=== PATIENT | male | born 1935 | race Caucasian/White ===

== ENCOUNTER 2017-03-01 10:09 | Emergency (ER) | payer BC, MEDICARE ==
[2017-03-01 09:09] LABS: BASOPHILS 0.2 %; BASOPHILS ABSOLUTE 0.01 10/3/uL (0.0-0.16); EOSINOPHILS 2.6 %; EOSINOPHILS ABSOLUTE 0.16 10/3/uL (0.0-0.53); ER CBC TAT 0 Hrs 13 Mins; HEMATOCRIT 38.9 % (40.0-51.0); HEMOGLOBIN 13.3 g/dL (13.6-17.8); IMMATURE GRANULOCYTES 0.2 %; IMMATURE GRANULOCYTES ABSOLUTE 0.01 10/3/uL (0.0-0.11); INTERNATIONAL NORMAL RATI 1.4 UNITS (-); LYMPHOCYTES 11.3 %; LYMPHOCYTES ABSOLUTE 0.69 10/3/uL (0.67-4.30); MANUAL DIFF NO %; MEAN CORPUS HGB CONC 34.2 g/dL (32.0-36.0); MEAN CORPUSCULAR HEMOGLOB 33.3 pg (26.0-34.0); MEAN CORPUSCULAR VOLUME 97.5 fL (80-100); MEAN PLATELET VOLUME 9.2 fL (9.2-13.0); MONOCYTES ABSOLUTE 0.61 10/3/uL (0.21-1.20); NEUTROPHILS 75.7 %; NEUTROPHILS ABSOLUTE 4.65 10/3/uL (2.02-8.40); PARTIAL THROMBO TIME 38.7 SEC (22.5-37.2); PLATELET COUNT 131 10/3/uL (150-400); PROTIME (NOT ORD) 16.7 SEC (12.0-14.5); RED CELL COUNT 3.99 10/6/uL (4.7-6.1); WHITE BLOOD CELLS 6.1 10/3/uL (4.5-10.5)
[2017-03-01 09:14] LABS: INFLUENZA A SCREEN NEGATIVE (NEGATIVE); INFLUENZA B SCREEN NEGATIVE (NEGATIVE)
[2017-03-01 09:21] LABS: ALBUMIN 3.3 G/DL (3.5-5.0); ALKALINE PHOSPHATASE 87 U/L (45-117); BUN (BLOOD UREA NITROGEN) 22 MG/DL (6-23); CALCIUM, SERUM 8.4 MG/DL (8.5-10.4); CHLORIDE, SERUM 112 MMOL/L (96-112); CO2 (CARBON DIOXIDE) 23 MMOL/L (24-34); CREATININE 1.68 MG/DL (0.70-1.30); GFR AFRICAN AMERICAN 43 ML/MIN (>=60); GFR NON AFRICAN AMERICAN 38 ML/MIN (>=60); GLOBULIN 3.3 G/DL (2.5-4.1); GLUCOSE, SERUM 101 MG/DL (60-99); SGOT(AST) 18 U/L (5-40); SGPT(ALT) 23 U/L (5-65); SODIUM, SERUM 143 MMOL/L (135-148); TOTAL BILIRUBIN 0.6 MG/DL (0-1.2); TOTAL PROTEIN 6.6 G/DL (6.0-8.5); TROPONIN I <0.02 NG/ML (<0.05)
[~2017-03-01 10:09] MED LIST: ACT300 PO; ARICEPT10 MG PO; ARICEPT10 PO; ASAB PO; C5 PO; CIP2 PO; CLINDA150 PO; COUMADIN7.5 MG PO; FERROUS SULF325 M1 PO; HYZAAR 100/25 T1 TAB PO; HYZAAR 50/12.51 TAB PO; LEVAQUIN750 MG PO; LOVENOX80 SC; NAMENDA10 MG PO; PRILO PO; PRILOSEC10 MG PO; PRILOSEC40 MG PO; VITAMIN D1000 UNI1 OR; VITAMIN D31000 UNIT PO; XARELTO15 MG PO
[2017-03-01 10:33] LABS: ASCORBIC ACID (UR NOT ORDER) 40 (NEG); BILIRUBIN, URINE NEGATIVE (NEG); ER URINALYSIS TAT 0 Hrs 12 Mins; KETONE, URINE NEGATIVE (NEG); LEUKOCYTE ESTERASE(NOT OR NEG (NEG); NITRITE (URINE) NEG (NEG); WBC (NOT ORDERED) (RFLEX) 1 (0-5)
== END 2017-03-01 11:38 | disposition home or self-care (01) ==
LOC: ER 10:09
PROVIDERS: Nurse Practitioner Family
DX: I13.0 Hypertensive heart and chronic kidney disease with heart failure and stage 1 through stage 4 chronic kidney disease, or unspecified chronic kidney disease (principal); I50.9 Heart failure, unspecified; N18.9 Chronic kidney disease, unspecified; F03.90 Unspecified dementia, unspecified severity, without behavioral disturbance, psychotic disturbance, mood disturbance, and anxiety; Z88.2 Allergy status to sulfonamides; Z79.899 Other long term (current) drug therapy
CPT/HCPCS: 70450; 71010; 74176; 80053; 81001; 83605; 84484; 85025; 85610; 85730; 87040; 87804; 93005; 99285